=== PATIENT | female | born 1990 | race Caucasian/White ===

== ENCOUNTER 2016-07-13 17:44 | Emergency (ER) | payer MEDICAID ==
[~2016-07-13] VITALS: Ht 165.1 cm; Wt 109.0 kg
[~2016-07-13 17:44] MED LIST: BACTDS PO; CEPH-443 PO
[2016-07-13 19:32] VITALS: Ht 165.1 cm; Wt 109.0 kg
[2016-07-13] MEDS ORDERED: CETI10CA PO (19:43)
[2016-07-13] MEDS ORDERED: GUAI120S26 PO (19:43)
[2016-07-13] MEDS ORDERED: IBUP-1542 PO (19:43)
[2016-07-13] MEDS ORDERED: FLUT9.9S NASAL (19:43)
--- NOTE | 2016-07-13 19:48 | ERD ---
ER Documentation Chief Complaint Date/Time DATE: 07/13/16 TIME: 19:46 Chief Complaint Runny nose nasal congestion, headache bodyaches, started 2 days ago HPI 25-year-old female presents here in emergency department for multiple complaints. Patient has been a runny nose, nasal congestion, cough, headache, body aches, joint pains for the last 2 days. Patient has been dry cough, does not cough up any phlegm or blood. Patient does not have any shortness breath or wheezing. Patient has been having runny nose nasal congestion with clear nasal discharge. Patient does not complain of sore throat or ear pain. Patient denies any ear discharge, complaining of congestion in both ears. Patient also complaining of bodyaches, headache, joint pains, throbbing pain, succession scale, calm any other symptoms. Patient took Tylenol and Dayquil at home to help with symptoms with mild relief. ROS All systems reviewed and are negative except as per history of present illness. Medications Home Meds Active Scripts Fluticasone Propionate (Flonase Allergy Relief) 9.9 Ml [place].susp, 1 SPRAY NASAL BID, #1 BOTTLE TO EACH NOSTRIL Prov:PAOLA RIOS NP 07/13/16 Cetirizine Hcl* (Zyrtec*) 10 Mg Capsule, 10 MG PO DAILY, #30 TAB.CHEW Prov:PAOLA RIOS NP 07/13/16 Ibuprofen* (Motrin*) 600 Mg Tab, 600 MG PO Q6H Y for PAIN AND OR ELEVATED TEMP, #30 TAB Prov:PAOLA RIOS NP 07/13/16 Izfvjspvpau-X-Ocpvcwcsjn Hb* (Guaifenesin* DM Syrup) 120 Ml Syrup, 10 ML PO Q4H Y for COUGH, #120 ML Prov:PAOLA RIOS NP 07/13/16 Cephalexin* (Keflex*) 500 Mg Capsule, 500 MG PO QID for 7 Days, CAP Prov:CRISTIANA EDOUARD PA-C 01/07/16 Sulfamethoxazole-Trimethoprim* (Bactrim* DS) 800-160 Mg Tab, 1 TAB PO BID for 7 Days, TAB Prov:CRISTIANA EDOUARD PA-C 01/07/16 Reported Medications [none] Unknown Strength No Conflict Check 06/17/15 Allergies Allergies: Coded Allergies: No Known Drug Allergies (Verified Allergy, Unknown, 01/10/14) PMhx/Soc Medical and Surgical Hx: pt denies Medical Hx, pt denies Surgical Hx Hx Alcohol Use: No Hx Substance Use: No Hx Tobacco Use: No FmHx Family History: No coronary disease, No diabetes, No other Physical Exam Vitals Vital Signs Date Time Temp Pulse Resp B/P Pulse Ox O2 Delivery O2 Flow Rate FiO2 07/13/16 19:32 99.6 99 20 141/87 98 Physical Exam GENERAL: The patient is well developed and appropriate for usual state of health, in no apparent distress. HEENT: Atraumatic. Ears: Normal tympanic membrane, no erythema or bulging. No ear canal swelling. No ear discharge. Nose: Erythematous nasal turbinates with clear nasal dish. Throat: oropharynx erythematous with postnasal drip. No tonsillar swelling or tonsillar exudates. No lymphadenopathy. CHEST: Clear to auscultation bilaterally. There are no rales, wheezes or rhonchi. HEART: Regular rate and rhythm. No murmurs, clicks, rubs or gallops. No S3 or S4. ABDOMEN: Soft, nontender and nondistended. Good bowel sounds. No rebound or guarding. No gross peritonitis. No gross organomegaly or masses. No Chery sign or McBurney point tenderness. BACK: No midline or flank tenderness. EXTREMITIES: Equal pulses bilaterally. There is no peripheral clubbing, cyanosis or edema. No focal swelling or erythema. Full range of motion. Grossly neurovascularly intact. NEURO: Alert and oriented. Cranial nerves 2-12 intact. Motor strength in all 4 extremities with 5/5 strength. Sensation grossly intact. Normal speech and gait. SKIN: There is no apparent rash or petechia. The skin is warm and dry. HEMATOLOGIC AND LYMPHATIC: There is no evidence of excessive bruising or lymphedema. No gross cervical, axillary, or inguinal lymphadenopathy. Procedures/MDM Medical Decision Making: Patient symptoms are most likely consistent with upper respiratory tract infection, which viral in origin. There is low suspicion for Pneumonia at this time since patients lungs sounds are clear, patient O2 saturation is normal and patient doesnt show any respiratory distress. Radiology exam is not indicated at this time. There is low suspicion for other cardiopulmonary emergencies at this time such as CHF, Pulmonary Embolism, Pneumothorax, or any other cardiopulmonary emergencies at this time. There is low suspicion for sepsis. Patient appears well and is hemodynamically stable. Patient does not have any fever. Disposition: Home. Condition: Stable Prescriptions: Guaifenesin DM, Zyrtec, ibuprofen, Flonase Instructions: Patient is advised to take medications as prescribed. Patient is advised to rest. Patient advised to increase fluid intake, do humidifier at home and if possible, do salt water gargles. Patient is advised that if symptoms are worse, shortness of breath, uncontrolled fever, stridor, vomiting, worst signs and symptoms to return to emergency department immediately. Otherwise, patient is advised to follow up with primary doctor in 5-7 days. Departure Diagnosis: Primary Impression: URI (upper respiratory infection) URI type: unspecified viral URI Qualified Code: J06.9 - Viral upper respiratory tract infection Condition: Stable Patient Instructions: Uri, Viral, No Abx (Adult) PAOLA RIOS NP Jul 13, 2016 19:48
== END 2016-07-13 19:58 | disposition home or self-care (01) ==
LOC: FTE 17:44 → E/R 19:58
DX: J06.9 Acute upper respiratory infection, unspecified (principal)
CPT/HCPCS: 99283

== ENCOUNTER 2017-01-16 18:46 | Emergency (ER) | END 2017-01-16 21:45 | disposition home or self-care (01) | DX: R55 Syncope and collapse (principal); N30.00 Acute cystitis without hematuria | CPT/HCPCS: 36415; 80053; 81001; 83690; 84484; 85025; 93005; 96374; J0696; J7040; Z7502; Z7610 ==

== ENCOUNTER 2017-03-07 01:28 | Emergency (ER) | payer OTHER ==
[~2017-03-07] VITALS: Ht 162.6 cm; Wt 110.0 kg
[~2017-03-07 01:28] MED LIST changes: +CETI10CA PO; +FLUT9.9S NASAL; +GUAI120S26 PO; +IBUP-1542 PO
[2017-03-07 01:31] VITALS: Ht 162.6 cm; Wt 110.0 kg
[2017-03-07] MEDS ORDERED: KETOROLAC 30 MG INJ IV STA (02:36)
[2017-03-07] MEDS ORDERED: HYDR-906 PO (02:38)
[2017-03-07] MEDS ORDERED: CLIN-73 PO (02:38)
[2017-03-07] MEDS ORDERED: IBUP-1542 PO (02:38)
--- NOTE | 2017-03-07 02:49 | ERD ---
ER Documentation Chief Complaint Date/Time DATE: 03/07/17 TIME: 02:44 Chief Complaint abscess right axilla HPI 26-year-old female presents here in emergency department for redness and swelling of the right axillary area, has frequent MRSA infections, easily treated with oral antibiotics, patient started to have it again, throbbing pain , succession scale, as was upon touching the area. Patient denies any discharge coming from the area. Patient denies any fever or chills. ROS All systems reviewed and are negative except as per history of present illness. Medications Home Meds Active Scripts Hydrocodone/Acetaminophen ([place] 5-325 Tablet) 1 Each Tablet, 1 TAB PO Q6H Y for SEVERE PAIN LEVEL 7-10, #20 TAB Prov:PAOLA RIOS NP 03/07/17 Ibuprofen* (Motrin*) 600 Mg Tab, 600 MG PO Q6H Y for PAIN AND OR ELEVATED TEMP, #30 TAB Prov:PAOLA RIOS NP 03/07/17 Clindamycin Hcl* (Clindamycin Hcl*) 300 Mg Capsule, 300 MG PO TID for 10 Days, CAP Prov:PAOLA RIOS NP 03/07/17 Cephalexin* (Keflex*) 500 Mg Capsule, 500 MG PO TID for 7 Days, CAP Prov:DAI ALANIZ MD 01/16/17 Fluticasone Propionate (Flonase Allergy Relief) 9.9 Ml [place].susp, 1 SPRAY NASAL BID, #1 BOTTLE TO EACH NOSTRIL Prov:PAOLA RIOS NP 07/13/16 Cetirizine Hcl* (Zyrtec*) 10 Mg Capsule, 10 MG PO DAILY, #30 TAB.CHEW Prov:PAOLA RIOS NP 07/13/16 Ibuprofen* (Motrin*) 600 Mg Tab, 600 MG PO Q6H Y for PAIN AND OR ELEVATED TEMP, #30 TAB Prov:PAOLA RIOS NP 07/13/16 Qgmafjkhamw-U-Arctwujbqu Hb* (Guaifenesin* DM Syrup) 120 Ml Syrup, 10 ML PO Q4H Y for COUGH, #120 ML Prov:PAOLA RIOS NP 07/13/16 Cephalexin* (Keflex*) 500 Mg Capsule, 500 MG PO QID for 7 Days, CAP Prov:CRISTIANA EDOUARD PA-C 01/07/16 Sulfamethoxazole-Trimethoprim* (Bactrim* DS) 800-160 Mg Tab, 1 TAB PO BID for 7 Days, TAB Prov:CRISTIANA EDOUARD PA-C 01/07/16 Reported Medications [none] Unknown Strength No Conflict Check 06/17/15 Allergies Allergies: Coded Allergies: No Known Drug Allergies (Verified Allergy, Unknown, 01/10/14) PMhx/Soc Medical and Surgical Hx: pt denies Medical Hx Hx Alcohol Use: No Hx Substance Use: No Hx Tobacco Use: No FmHx Family History: No coronary disease, No diabetes, No other Physical Exam Vitals Vital Signs Date Time Temp Pulse Resp B/P Pulse Ox O2 Delivery O2 Flow Rate FiO2 03/07/17 01:31 99.2 93 20 126/76 99 Physical Exam GENERAL: The patient is well developed and appropriate for usual state of health, in no apparent distress. CHEST: Clear to auscultation bilaterally. There are no rales, wheezes or rhonchi. HEART: Regular rate and rhythm. No murmurs, clicks, rubs or gallops. No S3 or S4. ABDOMEN: Soft, nontender and nondistended. Good bowel sounds. No rebound or guarding. No gross peritonitis. No gross organomegaly or masses. No Chery sign or McBurney point tenderness. BACK: No midline or flank tenderness. EXTREMITIES: Equal pulses bilaterally. There is no peripheral clubbing, cyanosis or edema. No focal swelling or erythema. Full range of motion. Grossly neurovascularly intact. NEURO: Alert and oriented. Cranial nerves 2-12 intact. Motor strength in all 4 extremities with 5/5 strength. Sensation grossly intact. Normal speech and gait. SKIN: 3 x 4 cm erythematous indurated area in the right axillary area, nonfluctuant, tender on palpation. There is no apparent petechia. The skin is warm and dry. HEMATOLOGIC AND LYMPHATIC: There is no evidence of excessive bruising or lymphedema. No gross cervical, axillary, or inguinal lymphadenopathy. Results 24 hrs Current Medications Medications (Trade) Dose Ordered Sig/Tae Route PRN Reason Start Time Stop Time Status Last Admin Dose Admin Clindamycin HCl/ Dextrose (Cleocin 600 Mg/ D5W (Pmx)) 50 ml @ 50 mls/hr ONCE IVPB 03/07/17 03:00 03/07/17 03:59 Ketorolac Tromethamine (Toradol) 30 mg ONCE STAT IV 03/07/17 02:36 03/07/17 02:37 DC IV clindamycin and Toradol was given here in the emergency department, tolerated medication well. Procedures/MDM Medical decision making: Patient symptoms leg is consistent with soft tissue abscess, no symptoms of any sepsis at this time. Patient appears well and is hemodynamically stable. Not fluctuant at this time, incision and drainage not indicated at this time. Patient was advised to apply warm compress on affected area, recheck in 2 days, take antibiotics as prescribed. Patient was given initial dose of clindamycin here in the emergency department, was sent home with clindamycin and pain medications. Patient was advised to return sooner for any worsening symptoms. Disposition: Home. Stable. Departure Diagnosis: Primary Impression: Soft tissue abscess Condition: Stable Patient Instructions: Abscess, Antiobiotic Treatment Only PAOLA RIOS NP Mar 07, 2017 02:49
[2017-03-07] MEDS ORDERED: CLINDAMYCIN 600 MG/D5W (PMX) 50 ML IVPB SCH (03:00)
== END 2017-03-07 04:25 | disposition home or self-care (01) ==
LOC: FTE 01:28
DX: L02.411 Cutaneous abscess of right axilla (principal)
CPT/HCPCS: 96374; 96375; J1885; Z7502; Z7610

== ENCOUNTER 2017-03-27 11:01 | Emergency (ER) | payer OTHER ==
[~2017-03-27] VITALS: Ht 165.1 cm; Wt 111.0 kg
[~2017-03-27 11:01] MED LIST changes: +CLIN-73 PO; +HYDR-906 PO
[2017-03-27 11:03] VITALS: Ht 165.1 cm; Wt 111.0 kg
[2017-03-27] MEDS ORDERED: ALBUTEROL 0.083% (NEB) 2.5 MG/3 ML AMP HHN STA (12:50)
[2017-03-27] MEDS ORDERED: IPRATROPIUM (NEB) 0.5 MG/2.5 ML AMP HHN ONE (13:00)
--- NOTE | 2017-03-27 13:34 | ERD ---
ER Documentation Chief Complaint Chief Complaint pt bib self with c/o cough and feeling sob for a few days, hx asthma HPI This is a 26-year-old female that presents to the ER stating she had an itchy throat on and then lost her voice on Wednesday. Patient is also complaining of chest pain shortness of breath, secondary to her asthma. Patient states she ran out of her inhaler and her symptoms started because of that. Does not have a cough. Patient has not traveled anywhere, she denies any leg pain, redness or swelling. ROS 12 point review of systems was done, all negative except per HPI. Medications Home Meds Active Scripts Phenol/Glycerin (Chloraseptic [place]) 30 Ml [place], 1 SPRAY MM Q2H Y for throat pain, #1 BOTTLE Prov:KANIKA CORDERO 03/27/17 Albuterol Sulfate* (Proair HFA*) 8.5 Gm [place].aer.ad, 2 PUFF INH Q4, #1 INHALER Prov:KANIKA CORDERO 03/27/17 Ibuprofen* (Ibuprofen*) 600 Mg Tablet, 600 MG PO Q6 for 3 Days, TAB Prov:KANIKA CORDERO 03/27/17 Hydrocodone/Acetaminophen ([place] 5-325 Tablet) 1 Each Tablet, 1 TAB PO Q6H Y for SEVERE PAIN LEVEL 7-10, #20 TAB Prov:PAOLA RIOS NP 03/07/17 Ibuprofen* (Motrin*) 600 Mg Tab, 600 MG PO Q6H Y for PAIN AND OR ELEVATED TEMP, #30 TAB Prov:PAOLA RIOS NP 03/07/17 Clindamycin Hcl* (Clindamycin Hcl*) 300 Mg Capsule, 300 MG PO TID for 10 Days, CAP Prov:PAOLA RIOS NP 03/07/17 Cephalexin* (Keflex*) 500 Mg Capsule, 500 MG PO TID for 7 Days, CAP Prov:DAI ALANIZ MD 01/16/17 Fluticasone Propionate (Flonase Allergy Relief) 9.9 Ml [place].susp, 1 SPRAY NASAL BID, #1 BOTTLE TO EACH NOSTRIL Prov:PAOLA RIOS NP 07/13/16 Cetirizine Hcl* (Zyrtec*) 10 Mg Capsule, 10 MG PO DAILY, #30 TAB.CHEW Prov:PAOLA RIOS LABOR REPRESENTATIVE 07/13/16 Ibuprofen* (Motrin*) 600 Mg Tab, 600 MG PO Q6H Y for PAIN AND OR ELEVATED TEMP, #30 TAB Prov:FRANCHESKAPAOLA METCALF LABOR REPRESENTATIVE 07/13/16 Udbqcdvlsgx-E-Huyjqazkrw Hb* (Guaifenesin* DM Syrup) 120 Ml Syrup, 10 ML PO Q4H Y for COUGH, #120 ML Prov:PAOLA RIOS. LABOR REPRESENTATIVE 07/13/16 Cephalexin* (Keflex*) 500 Mg Capsule, 500 MG PO QID for 7 Days, CAP Prov:CRISTIANA EDOUARD PA-C 01/07/16 Sulfamethoxazole-Trimethoprim* (Bactrim* DS) 800-160 Mg Tab, 1 TAB PO BID for 7 Days, TAB Prov:CRISTIANA EDOUARD PA-C 01/07/16 Reported Medications [none] Unknown Strength No Conflict Check 06/17/15 Allergies Allergies: Coded Allergies: No Known Drug Allergies (Verified Allergy, Unknown, 01/10/14) PMhx/Soc History of Surgery: No Anesthesia Reaction: No Hx Neurological Disorder: No Hx Respiratory Disorders: No Hx Cardiac Disorders: No Hx Psychiatric Problems: No Hx Miscellaneous Medical Probl: No Hx Alcohol Use: No Hx Substance Use: No Hx Tobacco Use: No Smoking Status: Never smoker Physical Exam Vitals Vital Signs Date Time Temp Pulse Resp B/P Pulse Ox O2 Delivery O2 Flow Rate FiO2 03/27/17 13:05 89 18 100 21 03/27/17 11:03 99.2 89 18 140/67 100 Physical Exam GENERAL: The patient is well-developed, well-nourished, in no acute distress. NECK: Cervical spine is non tender with no step off. Supple, no nuchal rigidity HEENT: Atraumatic. Pupils equal, round and reactive to light. Extraocular muscles are grossly intact. Conjunctivae pink, no discharge. Bilateral tympanic membranes are clear with no evidence of erythema, effusion or dulling of the light reflex. Tonsilar erythema with no exudates or uvular deviation. Clear rhinorrhea. RESPIRATORY: Clear to auscultation bilaterally. There are no rales, wheezes or rhonchi. HEART: Regular rate and rhythm. No murmurs, clicks, rubs or gallops. EXTREMITIES: No clubbing or cyanosis. Full range of motion. Grossly neurovascularly intact. NEUROLOGIC: Alert and oriented. Cranial nerves II through XII are intact. SKIN: There is no rash. The skin is warm and dry. Results 24 hrs Current Medications Medications (Trade) Dose Ordered Sig/Tae Route PRN Reason Start Time Stop Time Status Last Admin Dose Admin Albuterol (Proventil 0.083% (Neb)) 5 mg ONCE STAT N 03/27/17 12:50 03/27/17 12:52 DC 03/27/17 13:04 Ipratropium [place] (Atrovent 0.02% (Neb)) 0.5 mg ONCE ONCE N 03/27/17 13:00 03/27/17 13:01 DC 03/27/17 13:04 Procedures/MDM EKG : 85 Beats per minute no ST elevation or T-wave inversion, read by Dr. Grubbs. This is a 26-year-old female that presents to the ER complaining of sore throat , loss of voice, chest pain and shortness of breath. Patient likely has laryngitis there is no evidence of strep throat. She is afebrile and extremely well-appearing. I doubt retropharyngeal or peritonsillar abscess. In regards to patient's chest pain and shortness of breath, this is likely her asthma. Given a nebulizing treatment in the ER, and felt significantly better. She will be sent home with albuterol. Suspicion for cardiac etiology or intrathoracic abnormality is low. She does not have any PERC criteria. I doubt pulmonary embolism. Patient is to follow-up with her primary care doctor within 1-2 days return to ER sooner if symptoms worsen. My medical decision making shared with the patient she understands and agrees with plan. Departure Diagnosis: Primary Impression: Laryngitis Condition: Stable KANIKA CORDERO Mar 27, 2017 13:34
--- NOTE | 2017-03-27 14:01 | RADRPT ---
PROCEDURE: XR Chest AP portable CLINICAL INDICATION: Cough TECHNIQUE: An AP portable radiograph of the chest was submitted. COMPARISON: None. FINDINGS: Support Hardware: None Cardiovascular: The cardiovascular silhouette appears unremarkable. Lung Forman: The lung forman appear clear with no nodule, alveolar infiltrate, or interstitial promi nence evident. Pleural Spaces: No pneumothorax or pleural effusion is identified. Osseous Structures: The osseous structures appear intact. Soft Tissues: The left hemidiaphragm is minimally elevated. The soft tissues appear generous. IMPRESSION: 1. Mild elevation left hemidiaphragm. 2. Otherwise, unremarkable portable chest. Physician Barry Date Time Electronically viewed and signed by Physician Barry on 03/27/2017 14:01 /
[2017-03-27] MEDS ORDERED: IBUP-1542 PO (14:22)
[2017-03-27] MEDS ORDERED: ALBU8.5H3 INH (14:22)
[2017-03-27] MEDS ORDERED: PHEN30SP8 MM (14:23)
[2017-03-27 15:07] VITALS: BP 132/69; PULSE 74; RESP 18; TEMP 98.8
== END 2017-03-27 15:07 | disposition home or self-care (01) ==
LOC: FTE 11:01
DX: J04.0 Acute laryngitis (principal); R07.9 Chest pain, unspecified
CPT/HCPCS: 71010; 93005; 94664; Z7502; Z7610

== ENCOUNTER 2017-09-13 22:26 | Emergency (ER) | END 2017-09-14 05:13 | disposition home or self-care (01) ==

== ENCOUNTER 2019-01-25 09:58 | Emergency (ER) | payer SELFPAY ==
[~2019-01-25] VITALS: Ht 160 cm; Wt 97.9 kg
[~2019-01-25 09:58] MED LIST changes: +ALBU8.5H8 INH; -CLIN-73 PO; +CLIN300C10 PO; +CYCL10TA7 PO; +GUAI120S25 PO; -GUAI120S26 PO; +HYDR-4011 PO; -HYDR-906 PO; +NAPR-985 PO; +PHEN30SP8 MM
[2019-01-25 10:06] VITALS: Ht 160 cm; Wt 97.9 kg
[2019-01-25] MEDS ORDERED: IBUPROFEN 800 MG TAB PO ONE (10:30)
[2019-01-25 12:51] VITALS: BP 131/74; PULSE 81; RESP 18
== END 2019-01-25 12:53 | disposition home or self-care (01) ==
LOC: FTE 09:58
DX: S50.12XA Contusion of left forearm, initial encounter (principal); V49.49XA Driver injured in collision with other motor vehicles in traffic accident, initial encounter
CPT/HCPCS: 73090

== ENCOUNTER 2019-02-22 19:01 | Emergency (ER) | payer SELFPAY ==
[~2019-02-22] VITALS: Ht 165.1 cm; Wt 100.3 kg
[~2019-02-22 19:01] MED LIST changes: +DOXY100T34 PO
[2019-02-22 19:16] VITALS: Ht 165.1 cm; Wt 100.3 kg
[2019-02-22] MEDS ORDERED: IBUPROFEN 600 MG TAB PO ONE (20:30)
[2019-02-22] MEDS ORDERED: MUPIROCIN 2% 22 GM OINT TOP ONE (20:30)
[2019-02-22] MEDS ORDERED: LIDOCAINE 4% CR TOP ONE (20:30)
[2019-02-22 21:26] VITALS: BP 130/82; PULSE 82; RESP 16
== END 2019-02-22 21:27 | disposition home or self-care (01) ==
LOC: FTE 19:01
DX: L03.012 Cellulitis of left finger (principal)